=== PATIENT | male | born 1930 | race Caucasian/White ===

== ENCOUNTER 2017-01-23 04:44 | Inpatient (IN) | payer OTHER ==
[2017-01-23] VITALS (7 sets, daily range): BP systolic 133–170; BP diastolic 66–107
[~2017-01-23] VITALS: Ht 172.7 cm; Wt 89.8 kg
--- NOTE | ~2017-01-23 | EKG ---
[address] [address] ELECTROCARDIOGRAM REPORT Name: GRAYSON,AMANDAJyoti STARR Room #: 216-P ADM IN M.R.#: [id number] Admission: 01/23/17 Attend Phys: Gordon Leonard DO Discharge: Date of : 32 Report #: [id number] THIS REPORT FOR: //name// [facility] Test Date: 2017-01-25 Test Time: 07:37:43 Pat Name: AMANDA GRAYSON Department: Room: 216 P Gender: M Engine Lathe Set Up Operator Tool: Scarlet MENESES : 1930 Requested By: Gordon Leonard Order Number: [id number] MD: Moo Laws Measurements Intervals [place] Rate: 102 P: 223 TX: 192 QRS: -42 QRSD: 128 T: 134 QT: 379 QTc: 494 Interpretive Statements Sinus or ectopic atrial tachycardia Atrial premature complexes Consider left atrial enlargement Left bundle branch block Compared to ECG 01/23/2017 05:31:54 Sinus tachycardia no longer present Electronically Signed On 01-25-2017 8:35:13 CDT by Moo Laws [email or web address] <ELECTRONICALLY SIGNED> By: Moo Laws MD 01/25/17 0835 6 Moo Laws MD /EPI
--- NOTE | ~2017-01-23 | EKG ---
[place] [address] [facility] [place] [address] ELECTROCARDIOGRAM REPORT Name: GRAYSON,AMANDAJyoti STARR Room #: 216-P ADM IN M.R.#: [id number] Admission: 01/23/17 Attend Phys: Gordon Leonard DO Discharge: Date of : 32 Report #: [id number] THIS REPORT FOR: //name// [facility] Test Date: 2017-01-26 Test Time: 14:56:03 Pat Name: AMANDA GRAYSON Department: Room: 216 P Gender: M Plate Setter: Joanne LOCO : 1930 Requested By: Tomi Hayes Order Number: [id number] MD: Jorge Clark Measurements Intervals [place] Rate: 79 P: 16 UT: 219 QRS: -55 QRSD: 127 T: 138 QT: 411 QTc: 472 Interpretive Statements Sinus rhythm Atrial premature complexes Borderline prolonged [place] interval Left atrial enlargement Left bundle branch block Compared to ECG 01/25/2017 07:37:43 No significant change was found Electronically Signed On 01-27-2017 8:57:12 CDT by Jorge Clark [email or web address] <ELECTRONICALLY SIGNED> By: Jorge Clark MD, [facility] 01/27/17 0857 1456 1456 Jorge Clark MD, [facility] /EPI
--- NOTE | ~2017-01-23 | CATHLAB ---
[place] [address] [place] [address] INVASIVE PROCEDURE REPORT Name: AMANDA GRAYSON RO Room #: 216-P [facility] IN ..#: [id number] Admission: 01/23/17 Attend Phys: Gordon Leonard, Discharge: Date of : 32 Date of Service: 01/26/17 1736 Report #: [id number] THIS REPORT FOR: //name// APPROVED REPORT Patient Details Patient Status: In-Patient Room #: The patient is a 86 year-old male Event Personnel Tomi Hayes Fashion Design Professor, Aydee Barboza Monitor, Bess Lopes RN RN, Asad Dawkins Mahmood, Amber Monitor, Giuliana Frias RN airline pilot/first officer Performed Art Access - R femoral artery* Left Heart Cath w/or w/o Coronaries [id number] [facility] Indication Non-STEMI , Heart failure, Unstable angina , Cardiomyopathy Risk Factors Hypercholesterolemia, Hypertension Procedure Narrative The Right Groin^ was infiltrated with 1% Lidocaine subcutaneous anesthesia. A PINNACLE 4FR Sheath #[id number] sheath was inserted into the RFA^. Coronary angiography was performed using coronary diagnostic catheters. The right coronary system was accessed and visualized with a JR 4 catheter. The left coronary system was accessed and visualized with a JL 4 catheter. The left ventricle was accessed and visualized with a Pigtail catheter. Left ventricular/Aortic Valve gradient assessed via catheter pullback. Left ventriculogram was performed in 30 degree projection. The patient tolerated the procedure well and there were no complications associated with the procedure. Intraoperative Conscious Sedation Sedation start time: 13:20 Case end Time: 13:59 Versed 1.0 mg Fluoro Time: 9.05 minutes Dose: DAP 55167.00 cGycm2 1674 mGy Contrast Type and Amount: Omnipaque 169 ml [facility] [place] [address] INVASIVE PROCEDURE REPORT Name: GRAYSONAMANDA DARLING Room #: 216-P [facility] IN .R.#: [id number] Admission: 01/23/17 Attend Phys: Gordon Leonard, Discharge: Date of : 32 Date of Service: 01/26/17 1736 Report #: [id number] Coronary Angiography The patient's coronary anatomy is right dominant. Diagnostic Cath Left Main Mild diffuse disease LAD Moderately calcified in proximal and mid segments. The proximal LAD supplies 2 diagonal arteries, before a subtotal occlusion within the mid segment. After the obstruction, there is recannulation of the mid/distal LAD and third diagonal artery. Diagonal 1 Small-caliber vessel with no flow-limiting lesions Diagonal 2 Small-caliber vessel with no flow-limiting lesions Circumflex Small-caliber vessel, supplying a small obtuse marginal artery. Right Coronary Large, dominant vessel supplying a PDA and several RPL branches. The branches extend out into the mid lateral wall. The RCA proper is heavily calcified throughout. There is a moderate to severe stenosis in the proximal segment, 60-70%. R PDA A small caliber vessel with a severe stenosis in mid segment. RPLV The distal RCA has a severe 70% occlusion prior to supplying several RPL branches. Left Ventriculography The left ventricle is mildly dilated in size with diminished contractility. The left ventricular ejection fraction is estimated to be 30-35%. Left ventricular wall motion abnormalities are present. There is hypokinesis of the mid to apical anterior and distal inferoapical segments. Hemodynamics The aortic pressure is 133/65 mmHg with a mean of 90 mmHg. The left ventricular pressure is 147/20 mmHg with a mean of mmHg. The left ventricular end diastolic pressure is 30 mmHg. 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 Failed angioplasty of the mid LAD stenosis due to inability to cross the lesion with a wire. The stenosis is mostly likely a chronic total occlusion. Recommend medical therapy at this time and obtain a CV consultation. Recommendations [facility] [address] [place] [address] INVASIVE PROCEDURE REPORT Name: AMANDA GRAYSON RO Room #: 216-P [facility] IN M.R.#: [id number] Admission: 01/23/17 Attend Phys: Gordon Leonard, Discharge: Date of : 32 Date of Service: 01/26/17 1736 Report #: [id number] [facility] CABG <ELECTRONICALLY SIGNED> By: Tomi Hayes MD 01/26/17 1736 173 173 Tomi Hayes MD /INF
--- NOTE | ~2017-01-23 | 2DMMODE ---
[facility] [address] [place] [address] 2 D/M-MODE ECHOCARDIOGRAM Name: KENANAMANDA RO Room #: 216-P [facility] IN M.R.#: [id number] Admission: 01/23/17 Attend Phys: Gordon Leonard, Discharge: Date of : 32 Date of Service: 01/23/17 1314 Report #: [id number] THIS REPORT FOR: //name// APPROVED REPORT Study performed: 01/23/2017 10:57:02 EXAM: Comprehensive 2D, Doppler, and color-flow Echocardiogram Patient Location: Bedside Room #: 216 Status: routine Other Information Study Quality: Adequate Indications Diabetes Hypertension/HDD Elevated Troponin Echo Enhancing Agent Indication: Endocardial border delineation Agent(s) / Amount(s) Used: Optison 3 cc 2D Dimensions RVDd: 33.27 mm LVEF(%): 37.17 (>50%) IVSd: 9.90 (7-11mm) LVOT Diam: 22.58 (18-24mm) LVDd: 50.79 mm PWd: 10.10 (7-11mm) Ascending Ao: 35.14 (22-36mm) LVDs: 41.65 (25-40mm) Aortic Root: 28.44 mm IVC: 31.00 mm Rutherford's LVEF: 37.17 % Volumes Left Atrial Volume (Systole) Single Plane 4CH: 103.70 mL Single Plane 2CH: 80.48 mL LA ESV Index: 50.00 mL/m2 Aortic Valve AoV Peak Jose R.: 1.08 m/s AO Peak Gr.: 4.63 mmHg LVOT Max P.41 mmHg LVOT Max V: 0.92 m/s DEIRDRE Vmax: 3.43 cm2 [facility] [address] [place] [address] 2 D/M-MODE ECHOCARDIOGRAM Name: GRAYSONAMANDA CAPE GIRARDEAU Room #: 216[facility] IN ..#: [id number] Admission: 01/23/17 Attend Phys: Gordon Leonard, Discharge: Date of : 32 Date of Service: 01/23/17 1314 Report #: [id number] Mitral Valve E/A Ratio: 1.2 MV Decel. Time: 161.31 ms MV E Max Jose R.: 1.02 m/s MV A Jose R.: 0.84 m/s MV PHT: 46.78 ms IVRT: 83.04 ms Pulmonary Valve PV Peak Jose R.: 0.77 m/s PV Peak Gr.: 2.36 mmHg Tricuspid Valve TR Peak Jose R.: 3.53 m/s RAP Estimate: 15.00 mmHg TR Peak Gr.: 49.92 mmHg PA Pressure: 65.00 mmHg Left Ventricle The left ventricle is normal size. Distal septal, apical and anterolateral wall hypokinesis There is normal left ventricular wall thickness. Left ventricular ejection fraction is moderate-severely decreased. LVEF is 30-35%. This study is not technically sufficient to allow evaluation of the LV diastolic function. Right Ventricle The right ventricle is normal size. The right ventricular systolic function is normal. Atria Left atrium is dilated. The right atrium size is normal. Aortic Valve Aortic valve is calcified. Trace aortic regurgitation. There is no aortic valvular stenosis. Mitral Valve The mitral valve is normal in structure. Mild-moderate mitral regurgitation. No evidence of mitral valve stenosis. Tricuspid Valve The tricuspid valve is normal in structure. There is no tricuspid valve stenosis. There is trace to mild tricuspid regurgitation. The right atrial pressure is estimated at 15 mmHg. There is moderate-severe pulmonary hypertension. Pulmonic Valve The pulmonary valve is normal in structure. There is no pulmonic [place] [address] [place] [address] 2 D/M-MODE ECHOCARDIOGRAM Name: AMANDA GRAYSON RO Room #: 216-P [facility] IN [facility]#: [id number] Admission: 01/23/17 Attend Phys: Gordon Leonard, Discharge: Date of : 32 Date of Service: 01/23/17 1314 Report #: [id number] valvular regurgitation. Great Vessels The aortic root is normal in size. Dilated IVC with poor inspiration collapse is consistent with elevated right atrial pressure. Pericardium Tiny anterior pericardial effusion. <Conclusion> Technically limited study Left ventricular ejection fraction is moderate-severely decreased. Distal septal, apical and anterolateral wall hypokinesis LVEF 30-35%. Left atrium is dilated. Aortic valve is grossly normal. No aortic valvular stenosis or insufficiency. The mitral valve is normal in structure. Mild-moderate mitral regurgitation. Pulmonary artery pressure of 60mmHg Tiny anterior pericardial effusion. <ELECTRONICALLY SIGNED> By: Jorge Clark MD, FACC 01/23/17 1314 13 13 Jorge Clark MD, FACC /INF
--- NOTE | ~2017-01-23 | EKG ---
[place] [address] [facility] [place] [address] ELECTROCARDIOGRAM REPORT Name: AMANDA GRAYSON RO Room #: 216- ADM IN M.R.#: [id number] Admission: 01/23/17 Attend Phys: Gordon Leonard DO Discharge: Date of : 32 Report #: [id number] THIS REPORT FOR: //name// [facility] Test Date: 2017-01-27 Test Time: 07:29:12 Pat Name: AMANDA GRAYSON Department: Room: 216 P Gender: M Report Specialist: Scarlet MENESES : 1930 Requested By: Tomi Hayes Order Number: [id number] MD: Jorge Clark Measurements Intervals [place] Rate: 67 P: -25 LA: 254 QRS: -59 QRSD: 131 T: 209 QT: 552 QTc: 583 Interpretive Statements Sinus rhythm Prolonged [place] interval Left bundle branch block Compared to ECG 01/25/2017 07:37:43 First degree AV block now present Atrial premature complex(es) no longer present Electronically Signed On 01-27-2017 9:05:30 CDT by Jorge Clark [email or web address] <ELECTRONICALLY SIGNED> By: Jorge Clark MD, [facility] 01/27/17 0905 Jorge Clark MD, [facility] /EPI
--- NOTE | ~2017-01-23 | EKG ---
[place] [address] [facility] [place] [address] ELECTROCARDIOGRAM REPORT Name: GRAYSON,AMANDAJyoti STARR Room #: 216-P ADM IN M.R.#: [id number] Admission: 01/23/17 Attend Phys: Gordon Leonard DO Discharge: Date of : 32 Report #: [id number] THIS REPORT FOR: //name// [facility] ED Test Date: 2017-01-23 Test Time: 05:31:54 Pat Name: AMANDA GRAYSON Department: Room: 216 Gender: M Resource Coordinator: michael : 1930 Requested By: Abran Patel Order Number: [id number] MD: Jorge Clark Measurements Intervals [place] Rate: 101 P: -59 AR: 207 QRS: -41 QRSD: 139 T: 142 QT: 392 QTc: 509 Interpretive Statements Sinus tachycardia Atrial premature complex Borderline prolonged [place] interval Left bundle branch block No previous ECG available for comparison Electronically Signed On 01-23-2017 8:51:58 CDT by Jorge Clark [email or web address] <ELECTRONICALLY SIGNED> By: Jorge Clark MD, [facility] 01/23/17 0851 0 0 Jorge Clark MD, [facility] /EPI
--- NOTE | ~2017-01-23 | EKG ---
[address] [employer] [place] [address] ELECTROCARDIOGRAM REPORT Name: MELANI GRAYSONJyoti STARR Room #: 216- ADM IN M.R.#: [id number] Admission: 01/23/17 Attend Phys: Gordon Leonard DO Discharge: Date of : 32 Report #: [id number] THIS REPORT FOR: //name// [facility] Test Date: 2017-01-24 Test Time: 11:01:35 Pat Name: AMANDA GRAYSON Department: Room: 216 P Gender: M Softlines Supervisor: Scarlet MENESES : 1930 Requested By: Karla Sewell Order Number: [id number] MD: Jorge Clark Measurements Intervals [place] Rate: 74 P: -1 [place]: 41 QRS: -48 QRSD: 132 T: 179 QT: 454 QTc: 504 Interpretive Statements Sinus rhythm Atrial premature complexes Short [place] interval Probable left atrial enlargement Left bundle branch block Compared to ECG 01/23/2017 05:31:54 Atrial premature complexes are now present Electronically Signed On 01-25-2017 8:08:35 CDT by Jorge Clark [email or web address] <ELECTRONICALLY SIGNED> By: Jorge Clark MD, [facility] 01/25/17 0808 1101 1101 Jorge Clark MD, [facility] /EPI
[2017-01-23 05:23] LABS: HEMATOCRIT 38.2 % (42.0-52.0); HEMOGLOBIN 13.4 gm/dL (14.0-18.0); MCH 32.1 pg (26.0-34.0); MCHC 35.2 g/dL (28.0-37.0); MCV 91.4 fL (80.0-100.0); PLATELET COUNT 178 thou/uL (150-400); RBC 4.17 mil/uL (4.50-6.00); RDW 13.3 % (10.5-14.5); WBC 11.5 thou/uL (4.0-11.0)
[2017-01-23] MEDS ORDERED: PRINIVIL20 MG PO (05:25)
[2017-01-23] MEDS ORDERED: TOPROL XL25 MG PO (05:26)
[2017-01-23] MEDS ORDERED: GLYBURIDE 2.52.5 MG PO (05:26)
[2017-01-23 05:27] LABS: URINE BILIRUBIN NEGATIVE (Negative); URINE BLOOD 1+ (Negative); URINE COLOR YELLOW; URINE GLUCOSE-RANDOM* NEGATIVE (Negative); URINE KETONES TRACE (Negative); URINE LEUKOCYTES-REFLEX NEGATIVE (Negative); URINE PROTEIN (DIPSTICK) 2+ (Negative); URINE SPECIFIC GRAVITY >= 1.030 (1.003-1.035)
[2017-01-23] MEDS ORDERED: FLOMAX0.4 MG PO (05:27)
[2017-01-23] MEDS ORDERED: NOVOLOG100 UNIT/1 SUBQ (05:27)
[2017-01-23] MEDS ORDERED: LANTUS100 UNIT/M SUBQ (05:27)
[2017-01-23 05:37] LABS: MANUAL DIFF YES
[2017-01-23 05:42] LABS: CALCIUM 8.6 mg/dL (8.5-10.1); CREATININE 1.2 mg/dL (0.7-1.3); MAGNESIUM 1.5 mg/dL (1.8-2.4); POTASSIUM 4.1 mmol/L (3.5-5.1); TOTAL BILIRUBIN 2.1 mg/dL (<0.1-1.0); TOTAL PROTEIN 7.6 g/dL (6.4-8.2); TROPONIN-I 0.22 ng/mL (<0.04-0.07)
[2017-01-23 05:50] LABS: ABG SAMPLE TYPE ARTERIAL; BE(vivo) -7.3 mmol/L (-2 to +3); HCO3 16.7 mmol/L (22.0-26.0); LACTATE 1.13 mmol/L (0.5-2.0); O2(CT) 17.9 mL/dL (15.0-23.0); O2Hb 94.1 % (92.0-98.0); PCO2 29.8 mmHg (35.0-45.0); PO2 80.7 mmHg (80.0-100.0); pH 7.367 (7.360-7.450); sO2 95.8 % (92.0-98.0); tCO2 17.6 mmol/L (24.0-30.0)
[2017-01-23 05:51] LABS: Pressure Support 6 cm H20; STICK SITE R.BRACHIAL
[2017-01-23 06:02] LABS: APTT 28.1 Seconds (24.5-32.8); INR 1.1; PROTIME 11.2 Seconds (9.3-11.4)
[2017-01-23 06:10] LABS: ABSOLUTE NEUTROPHILS 9.8 thou/uL (1.4-8.2); CRYSTALS None Seen /LPF (None Seen); METAMYELOCYTES 1 %; SQUAMOUS 0-3 Few /LPF (0-3); TOTAL CELL COUNT 100; URINE RBC 0-2 Rare /HPF (0-2); URINE WBC-REFLEX None Seen /HPF (0-5)
[2017-01-23] MEDS ORDERED: LIPITOR 20 MG T20 M1 PO (12:17)
[2017-01-23] MEDS ORDERED: ASPIR 8181 MG (12:21)
[2017-01-23] MEDS ORDERED: IRON325 PO (12:22)
[2017-01-23] MEDS ORDERED: TYLENOL325 MG (12:22)
[2017-01-23] MEDS ORDERED: COLACE100 MG PO (12:24)
[2017-01-24 03:56] VITALS: BP 155/90
[2017-01-24 07:44] VITALS: BP 145/69
[2017-01-24 10:02] LABS: HEMATOCRIT 35.8 % (42.0-52.0); HEMOGLOBIN 12.4 gm/dL (14.0-18.0); MCH 32.4 pg (26.0-34.0); MCHC 34.7 g/dL (28.0-37.0); MCV 93.4 fL (80.0-100.0); RBC 3.84 mil/uL (4.50-6.00); RDW 13.3 % (10.5-14.5); WBC 13.7 thou/uL (4.0-11.0)
[2017-01-24 10:16] LABS: CALCIUM 7.9 mg/dL (8.5-10.1); POTASSIUM 4.6 mmol/L (3.5-5.1)
[2017-01-24 10:53] VITALS: BP 142/67
[2017-01-24 11:12] VITALS: BP 123/64
[2017-01-24 15:45] VITALS: BP 140/68
[2017-01-24 18:31] LABS: ALBUMIN 3.1 g/dL (3.4-5.0); CALCIUM 7.7 mg/dL (8.5-10.1); CREATININE 1.1 mg/dL (0.7-1.3); PHOSPHORUS 4.5 mg/dL (2.5-4.9); POTASSIUM 4.3 mmol/L (3.5-5.1)
[2017-01-24 19:35] VITALS: BP 148/82
[2017-01-25] VITALS (8 sets, daily range): BP systolic 11–158; BP diastolic 64–96
[2017-01-25 02:47] LABS: ABSOLUTE NEUTROPHILS 8.5 thou/uL (1.4-8.2); BASOPHILS 0.3 % (0.0-2.0); EOSINOPHILS 0.7 % (0.0-3.0); HEMATOCRIT 34.2 % (42.0-52.0); HEMOGLOBIN 12.1 gm/dL (14.0-18.0); LYMPHOCYTES 6.8 % (24.0-44.0); MCH 32.9 pg (26.0-34.0); MCHC 35.3 g/dL (28.0-37.0); MONOCYTES 7.3 % (1.0-8.0); PLATELET COUNT 142 thou/uL (150-400); POLYS 84.9 % (36.0-66.0); RBC 3.67 mil/uL (4.50-6.00); RDW 12.9 % (10.5-14.5); WBC 10.1 thou/uL (4.0-11.0)
[2017-01-25 02:49] LABS: MANUAL DIFF NO
[2017-01-25 02:59] LABS: CALCIUM 7.8 mg/dL (8.5-10.1); CREATININE 1.1 mg/dL (0.7-1.3); PHOSPHORUS 4.3 mg/dL (2.5-4.9); POTASSIUM 4.8 mmol/L (3.5-5.1)
[2017-01-26] VITALS (11 sets, daily range): BP systolic 126–168; BP diastolic 60–90
[2017-01-26 03:53] LABS: ABSOLUTE NEUTROPHILS 7.1 thou/uL (1.4-8.2); BASOPHILS 0.2 % (0.0-2.0); EOSINOPHILS 1.4 % (0.0-3.0); HEMATOCRIT 33.4 % (42.0-52.0); HEMOGLOBIN 11.7 gm/dL (14.0-18.0); LYMPHOCYTES 10.2 % (24.0-44.0); MCH 32.3 pg (26.0-34.0); MCHC 34.9 g/dL (28.0-37.0); MCV 92.5 fL (80.0-100.0); MONOCYTES 9.6 % (1.0-8.0); PLATELET COUNT 154 thou/uL (150-400); POLYS 78.6 % (36.0-66.0); RBC 3.62 mil/uL (4.50-6.00)
[2017-01-26 03:59] LABS: MANUAL DIFF NO
[2017-01-26 04:01] LABS: CALCIUM 7.8 mg/dL (8.5-10.1); CREATININE 1.1 mg/dL (0.7-1.3); PHOSPHORUS 4.4 mg/dL (2.5-4.9); POTASSIUM 4.3 mmol/L (3.5-5.1)
[2017-01-27] VITALS (10 sets, daily range): BP systolic 71–134; BP diastolic 43–66
[2017-01-27 06:48] LABS: HEMATOCRIT 37.4 % (42.0-52.0); MCHC 34.9 g/dL (28.0-37.0); MCV 91.7 fL (80.0-100.0); PLATELET COUNT 180 thou/uL (150-400); RBC 4.08 mil/uL (4.50-6.00); RDW 13.4 % (10.5-14.5); WBC 11.2 thou/uL (4.0-11.0)
[2017-01-27 06:49] LABS: MANUAL DIFF YES
[2017-01-27 07:03] LABS: ALBUMIN 3.6 g/dL (3.4-5.0); CALCIUM 8.4 mg/dL (8.5-10.1); CREATININE 1.6 mg/dL (0.7-1.3); PHOSPHORUS 4.8 mg/dL (2.5-4.9); POTASSIUM 4.3 mmol/L (3.5-5.1)
[2017-01-27 07:56] LABS: ABSOLUTE NEUTROPHILS 8.4 thou/uL (1.4-8.2); TOTAL CELL COUNT 100
[2017-01-27 07:57] LABS: ANISOCYTOSIS SLIGHT
[2017-01-28 04:00] VITALS: BP 140/73
[2017-01-28 05:15] LABS: ALBUMIN 3.1 g/dL (3.4-5.0); CREATININE 2.1 mg/dL (0.7-1.3); POTASSIUM 4.2 mmol/L (3.5-5.1)
[2017-01-28 07:06] VITALS: BP 136/61
[2017-01-28 13:00] VITALS: BP 85/40
[2017-01-28 14:38] VITALS: BP 98/33
[2017-01-28 15:34] VITALS: BP 96/50
[2017-01-28 20:23] VITALS: BP 120/55
[2017-01-29 04:03] VITALS: BP 161/80
[2017-01-29 04:42] LABS: ALBUMIN 3.1 g/dL (3.4-5.0); CALCIUM 8.2 mg/dL (8.5-10.1); CREATININE 2.1 mg/dL (0.7-1.3); PHOSPHORUS 5.2 mg/dL (2.5-4.9); POTASSIUM 4.4 mmol/L (3.5-5.1)
[2017-01-29 08:00] VITALS: BP 142/55
[2017-01-29 08:58] LABS: ABSOLUTE NEUTROPHILS 5.9 thou/uL (1.4-8.2); BASOPHILS 0.9 % (0.0-2.0); EOSINOPHILS 2.9 % (0.0-3.0); HEMATOCRIT 34.2 % (42.0-52.0); HEMOGLOBIN 11.9 gm/dL (14.0-18.0); LYMPHOCYTES 18.3 % (24.0-44.0); MCH 32.4 pg (26.0-34.0); MCHC 34.9 g/dL (28.0-37.0); MCV 92.7 fL (80.0-100.0); MONOCYTES 11.7 % (1.0-8.0); PLATELET COUNT 157 thou/uL (150-400); POLYS 66.2 % (36.0-66.0); RBC 3.69 mil/uL (4.50-6.00); RDW 13.2 % (10.5-14.5); WBC 8.9 thou/uL (4.0-11.0)
[2017-01-29 08:59] LABS: MANUAL DIFF NO
[2017-01-29 13:10] VITALS: BP 96/51
[2017-01-29 16:45] VITALS: BP 110/44
[2017-01-29 20:23] VITALS: BP 93/51
[2017-01-30 03:38] LABS: ALBUMIN 3.1 g/dL (3.4-5.0); CALCIUM 8.1 mg/dL (8.5-10.1); CREATININE 1.6 mg/dL (0.7-1.3); PHOSPHORUS 4.8 mg/dL (2.5-4.9); POTASSIUM 4.4 mmol/L (3.5-5.1)
[2017-01-30 04:46] VITALS: BP 127/40
[2017-01-30 07:35] VITALS: BP 134/16
[2017-01-30 11:40] VITALS: BP 120/44
[2017-01-30 17:44] VITALS: BP 131/57
[2017-01-30 20:42] VITALS: BP 155/70
[2017-01-31 03:54] LABS: ABSOLUTE NEUTROPHILS 5.5 thou/uL (1.4-8.2); BASOPHILS 0.7 % (0.0-2.0); EOSINOPHILS 2.9 % (0.0-3.0); HEMATOCRIT 32.8 % (42.0-52.0); HEMOGLOBIN 11.7 gm/dL (14.0-18.0); LYMPHOCYTES 15.1 % (24.0-44.0); MCH 32.9 pg (26.0-34.0); MCHC 35.7 g/dL (28.0-37.0); MCV 92.4 fL (80.0-100.0); MONOCYTES 11.4 % (1.0-8.0); PLATELET COUNT 143 thou/uL (150-400); POLYS 69.9 % (36.0-66.0); RBC 3.55 mil/uL (4.50-6.00); RDW 13.3 % (10.5-14.5); WBC 7.9 thou/uL (4.0-11.0)
[2017-01-31 03:55] LABS: ALBUMIN 3.1 g/dL (3.4-5.0); CALCIUM 8.4 mg/dL (8.5-10.1); CREATININE 1.2 mg/dL (0.7-1.3); MAGNESIUM 1.5 mg/dL (1.8-2.4); PHOSPHORUS 3.7 mg/dL (2.5-4.9); POTASSIUM 4.3 mmol/L (3.5-5.1)
[2017-01-31 04:22] VITALS: BP 180/70
[2017-01-31 04:26] LABS: MANUAL DIFF NO
[2017-01-31 07:35] VITALS: BP 145/74
[2017-01-31 11:05] VITALS: BP 99/52
[2017-01-31 15:20] VITALS: BP 137/59
[2017-01-31 19:24] VITALS: BP 155/67
[2017-02-01 03:09] LABS: ALBUMIN 3.2 g/dL (3.4-5.0); CALCIUM 8.3 mg/dL (8.5-10.1); CREATININE 1.1 mg/dL (0.7-1.3); PHOSPHORUS 3.5 mg/dL (2.5-4.9); POTASSIUM 4.2 mmol/L (3.5-5.1)
[2017-02-01 03:30] VITALS: BP 158/91
[2017-02-01 07:40] VITALS: BP 144/71
[2017-02-01] MEDS ORDERED: LANTUS100 UNIT/M SUBQ (09:44)
[2017-02-01] MEDS ORDERED: TRADJENTA5 MG PO (09:44)
[2017-02-01 11:35] VITALS: BP 123/56
== END 2017-02-01 14:20 | DRG 871 ==
LOC: ER 04:44 → 2N 05:44 → EROBS 05:44 → 2N 07:15
PROVIDERS: Emergency Medicine; Family Medicine; Hospitalist; Internal Medicine Endocrinology, Diabetes & Metabolism; Nurse Practitioner
DX: A41.9 Sepsis, unspecified organism (principal); I21.4 Non-ST elevation (NSTEMI) myocardial infarction; J96.01 Acute respiratory failure with hypoxia; I50.33 Acute on chronic diastolic (congestive) heart failure; N17.0 Acute kidney failure with tubular necrosis; N39.0 Urinary tract infection, site not specified; I42.9 Cardiomyopathy, unspecified; E22.2 Syndrome of inappropriate secretion of antidiuretic hormone; R33.9 Retention of urine, unspecified; E78.5 Hyperlipidemia, unspecified; I11.0 Hypertensive heart disease with heart failure; J32.9 Chronic sinusitis, unspecified; I44.7 Left bundle-branch block, unspecified; I25.10 Atherosclerotic heart disease of native coronary artery without angina pectoris; I34.0 Nonrheumatic mitral (valve) insufficiency; I27.2 Other secondary pulmonary hypertension; H54.41 Blindness, right eye, normal vision left eye; K21.9 Gastro-esophageal reflux disease without esophagitis; M19.90 Unspecified osteoarthritis, unspecified site; Z98.42 Cataract extraction status, left eye; Z98.41 Cataract extraction status, right eye; E11.649 Type 2 diabetes mellitus with hypoglycemia without coma; Z89.511 Acquired absence of right leg below knee; Z87.81 Personal history of (healed) traumatic fracture; Z91.81 History of falling; Z79.4 Long term (current) use of insulin; Z79.82 Long term (current) use of aspirin; Z79.899 Other long term (current) drug therapy; Z88.2 Allergy status to sulfonamides; Z83.3 Family history of diabetes mellitus; Z82.49 Family history of ischemic heart disease and other diseases of the circulatory system
CPT/HCPCS: 10081

== ENCOUNTER 2017-03-23 12:43 | Inpatient (IN) | payer OTHER ==
[~2017-03-23] VITALS: Ht 177.8 cm; Wt 89.5 kg
--- NOTE | ~2017-03-23 | S ---
[facility] [place] [address] SURGICAL PATH RPT PROCEDURE Name: AMANDA GARCIA Room #: 218-P ADM IN M.R.#: [id number] Admission: 03/23/17 Date of : 34 Discharge: Report #: [id number] Path Case #: [id number] PATHOLOGY REPORT COLLECTION DATE: 03/28/2017 RECEIVED DATE: 03/28/2017 SUBMITTING PHYS: Dr. Maikol Sterling OTHER PHYS: Dr. Jonny Chery SPECIMEN(S) RECEIVED: A.Peripheral smear * * * * * * * * * * * * FINAL DIAGNOSIS: Peripheral blood smear: - Mild normocytic anemia, mildly left shifted granulocytes, severe thrombocytopenia and circulating nucleated red blood cells. (see comment) COMMENT: Overall, the peripheral blood has mild normocytic anemia, mildly left shifted granulocytes and severe thrombocytopenia. Occasional circulating nucleated red blood cells are also noted. The WBC count is within the normal reference range. The etiology of the findings is unclear based entirely on slide review. Potential causes of thrombocytopenia include immune and non-immune platelet destruction, drug and/or toxic exposures, consumption, dilutional, and primary bone marrow disorders. The mildly left shifted granulocytes are likely a reactive condition. No blasts or Soumya rods are seen on scanning. Potential causes of normocytic anemia include anemia of chronic disease, treated and/or vitamin and mineral deficiencies, acute blood loss, and dilutional. Correlation with clinical history and additional laboratory data is recommended. The case is discussed with Dr. Kaley Leal on 03/28/17 at approximately 11:00 AM. (CLW:; 03/28/2017) PATHOLOGIST: Thuy Lambert M.D. REPORT ELECTRONICALLY SIGNED BY: Thuy Lambert M.D. DATE/TIME: 03/28/2017 23:07 * * * * * * * * * * * * MICROSCOPIC DESCRIPTION: CBC Data (03/28/17): WBC 9,600 /uL, RBC 3.30, hemoglobin 11.1 g/dL, hematocrit 31.3%, MCV 94.9 fL, MCH 33.7 pg, MCHC 35.6 g/dL, RDW 16.4%. Platelet count 17,000 /uL. Manual white blood cell [address] [address] SURGICAL PATH RPT PROCEDURE Name: AMANDA GARCIA [place] Room #: 218-P ADM IN [facility]#: [id number] Admission: 03/23/17 Date of : 32 Discharge: Report #: [id number] Path Case #: [id number] differential: segs 67%, bands 16%, lymphs 6%, monos 2%, metas 6%, myelos 2%, atypical lymph 1% and 3 NRBCs/100 WBCs. Peripheral Blood Smear: Cytomorphological examination of the Marroquin's stained peripheral blood smear confirms the provided data. Red blood cells show mild normocytic anemia with mild anisocytosis. No significant poikilocytosis is identified. No significant schistocytes or microspherocytes are present. White blood cells are predominantly segmented neutrophils. Occasional neutrophils have hypersegmented nuclei and hypogranular cytoplasm; however, marked dyspoietic changes are not identified. There is a mild left shift with occasional myelocytes and metamyelocytes noted on scanning. No blasts or Soumya rods are seen. Lymphocytes are predominantly small, round, and mature appearing with condensed chromatin and scant cytoplasm with admixed large granular lymphocytes and rare plasmacytoid lymphocytes. Rare monocytes are mature. Platelets are markedly decreased in number and mainly normal in morphology with rare larger platelets noted. Scattered nucleated red blood cells are seen. GROSS PATHOLOGY: Received are three Marroquin's stained peripheral blood smears, labeled "Amanda Garcia." (CLW:; 03/28/2017) CLINICAL HISTORY: 87 year-old man with mild anemia and severe thrombocytopenia. Morphologic review of the peripheral blood smear is requested by the patient's physician. INITIAL CPT CODE(S): A; [place] Professional services performed by [facility] at [place] [address] [address], [place] [address] Technical services performed by [employer] at [address] [place] [address], [address], [place] [address]. [facility] [address] [place] [address] PHONE: [phone] DIRECTOR: Juanjo Robins M.D. * * * END OF REPORT * * *
--- NOTE | ~2017-03-23 | EKG ---
[place] [address] [facility] [place] [address] ELECTROCARDIOGRAM REPORT Name: AMANDA GRAYSON RO Room #: 218-P ADM IN M.R.#: [id number] Admission: 03/23/17 Attend Phys: Maikol tSerling MD Discharge: Date of : 32 Report #: [id number] THIS REPORT FOR: //name// [facility] ED Test Date: 2017-03-23 Test Time: 12:55:14 Pat Name: AMANDA GRAYSON Department: Room: 218 Gender: M Professional Driver: Tate CARTY : 1930 Requested By: Brianne Deshpande Order Number: [id number] MD: Jorge Clark Measurements Intervals [place] Rate: 96 P: 26 NM: 177 QRS: -47 QRSD: 128 T: 139 QT: 397 QTc: 502 Interpretive Statements Sinus rhythm Left bundle branch block Compared to ECG 01/27/2017 07:29:12 First degree AV block no longer present ST and T wave abnormality is less pronounced QT interval shortened Electronically Signed On 03-24-2017 8:09:00 CDT by Jorge Clark [email or web address] <ELECTRONICALLY SIGNED> By: Jorge Clrak MD, [facility] 03/24/17 0809 1255 1255 Jorge Clark MD, [facility] /EPI
--- NOTE | ~2017-03-23 | EKG ---
[address] [place] [address] ELECTROCARDIOGRAM REPORT Name: GRAYSON,AMANDAJyoti STARR Room #: 218-[facility] IN ..#: [id number] Admission: 03/23/17 Attend Phys: Maikol Sterling MD Discharge: 04/02/17 Date of : 32 Report #: [id number] THIS REPORT FOR: //name// [facility] Test Date: 2017-04-02 Test Time: 13:46:36 Pat Name: AMANDA GRAYSON Department: Room: 218 Gender: M [place]: ANASTASIA : 1930 Requested By: Anders Sanchez Order Number: [id number] MD: Jorge Clark Measurements Intervals [place] Rate: 94 P: NE: QRS: -51 QRSD: 108 T: 161 QT: 363 QTc: 454 Interpretive Statements Atrial fibrillation Ventricular premature complex Left anterior fascicular block Abnormal R-wave progression, late transition Nonspecific ST and T wave abnormality Compared to ECG 03/23/2017 12:55:14 atrial fibrillation has replaced sinus rhythm Premature ventricular complexes are now present Electronically Signed On 04-03-2017 8:37:48 CDT by Jorge Clark [email or web address] <ELECTRONICALLY SIGNED> By: Jorge Clark MD, [facility] 04/03/17 0837 1346 1346 Jorge Clark MD, [facility] /EPI
[~2017-03-23 12:43] MED LIST: ASPIR 8181 MG; COLACE100 MG PO; FLOMAX0.4 MG PO; GLYBURIDE 2.52.5 MG PO; IRON325 PO; LANTUS100 UNIT/M SUBQ; LIPITOR 20 MG T20 M1 PO; NOVOLOG100 UNIT/1 SUBQ; PRINIVIL20 MG PO; TOPROL XL25 MG PO; TRADJENTA5 MG PO; TYLENOL325 MG
[2017-03-23 12:44] VITALS: BP 136/72
[2017-03-23 13:49] LABS: HEMOGLOBIN 12.9 gm/dL (14.0-18.0)
[2017-03-23 13:51] LABS: HEMATOCRIT 37.9 % (42.0-52.0); MCH 32.8 pg (26.0-34.0); MCHC 34.1 g/dL (28.0-37.0); MCV 96.1 fL (80.0-100.0); RBC 3.95 mil/uL (4.50-6.00); RDW 16.5 % (10.5-14.5); WBC 13.3 thou/uL (4.0-11.0)
[2017-03-23 13:52] LABS: MANUAL DIFF YES
[2017-03-23 13:53] LABS: CALCIUM 8.5 mg/dL (8.5-10.1); CREATININE 2.1 mg/dL (0.7-1.3)
[2017-03-23 14:00] LABS: INR 1.1; PROTIME 10.8 Seconds (9.3-11.4)
[2017-03-23 14:01] LABS: ALBUMIN 2.6 g/dL (3.4-5.0); MAGNESIUM 2.2 mg/dL (1.8-2.4); TOTAL PROTEIN 6.3 g/dL (6.4-8.2)
[2017-03-23 14:05] LABS: POTASSIUM 2.8 mmol/L (3.5-5.1); TROPONIN-I 0.91 ng/mL (<0.04-0.07)
[2017-03-23 14:10] LABS: ABSOLUTE NEUTROPHILS 11.3 thou/uL (1.4-8.2); ANISOCYTOSIS 1+; METAMYELOCYTES 2 %; PLATELET COUNT 41 thou/uL (150-400); PLATELET ESTIMATE DECREASED; TOTAL CELL COUNT 100
[2017-03-23 14:28] LABS: URINE BILIRUBIN NEGATIVE (Negative); URINE BLOOD 3+ (Negative); URINE COLOR YELLOW; URINE GLUCOSE-RANDOM* NEGATIVE (Negative); URINE KETONES NEGATIVE (Negative); URINE NITRITE NEGATIVE (Negative); URINE PROTEIN (DIPSTICK) 1+ (Negative); URINE SPECIFIC GRAVITY 1.015 (1.003-1.035); URINE UROBILINOGEN 0.2 E.U./dl (0.2-1.0)
[2017-03-23 14:42] LABS: AMORPHOUS URATES Moderate /LPF (None Seen); CASTS None Seen /LPF (None Seen); SQUAMOUS 4-10 Moderate /LPF (0-3); URINE RBC 3-10 Few /HPF (0-2); URINE WBC >25 Many /HPF (0-5)
[2017-03-23 16:00] VITALS: BP 108/50
[2017-03-23] MEDS ORDERED: LASIX 40 MG TAB40 M2 PO (16:28)
[2017-03-23] MEDS ORDERED: FINASTERIDE5 MG PO (16:28)
[2017-03-23] MEDS ORDERED: COZAAR 25 MG TA25 M1 PO (16:28)
[2017-03-23] MEDS ORDERED: POTASSIUM20 PO (16:28)
[2017-03-23] MEDS ORDERED: GLUCOTROL5 MG PO (16:29)
[2017-03-23 19:38] VITALS: BP 117/59
[2017-03-23] MEDS ORDERED: AMBIEN 5 MG TABL5 M1 PO (19:39)
[2017-03-24 02:32] LABS: HEMOGLOBIN 12.5 gm/dL (14.0-18.0)
[2017-03-24 02:34] LABS: HEMATOCRIT 37.7 % (42.0-52.0); MCH 32.2 pg (26.0-34.0); MCHC 33.1 g/dL (28.0-37.0); MCV 97.4 fL (80.0-100.0); PLATELET COUNT 40 thou/uL (150-400); RBC 3.87 mil/uL (4.50-6.00); RDW 16.6 % (10.5-14.5); WBC 13.8 thou/uL (4.0-11.0)
[2017-03-24 02:38] LABS: CALCIUM 8.2 mg/dL (8.5-10.1); CREATININE 1.9 mg/dL (0.7-1.3); MAGNESIUM 2.1 mg/dL (1.8-2.4); POTASSIUM 4.3 mmol/L (3.5-5.1)
[2017-03-24 03:46] LABS: MANUAL DIFF YES
[2017-03-24 04:02] VITALS: BP 128/63
[2017-03-24 07:40] VITALS: BP 125/67
[2017-03-24 08:45] LABS: ANISOCYTOSIS 1+; METAMYELOCYTES 1 %; MYELOCYTES 1 %; NUCLEATED RBCS 3 /100WBC; PLATELET ESTIMATE DECREASED; POLYCHROMASIA SLIGHT; TOTAL CELL COUNT 100
[2017-03-24 11:45] VITALS: BP 140/88
[2017-03-24 15:40] VITALS: BP 134/78
[2017-03-24 19:44] VITALS: BP 147/82
[2017-03-25 03:29] LABS: HEMATOCRIT 38.6 % (42.0-52.0); HEMOGLOBIN 12.6 gm/dL (14.0-18.0); MCHC 32.7 g/dL (28.0-37.0); MCV 97.8 fL (80.0-100.0); RBC 3.94 mil/uL (4.50-6.00); RDW 17.1 % (10.5-14.5); WBC 15.1 thou/uL (4.0-11.0)
[2017-03-25 03:38] LABS: CALCIUM 8.4 mg/dL (8.5-10.1); CREATININE 2.2 mg/dL (0.7-1.3); POTASSIUM 4.8 mmol/L (3.5-5.1)
[2017-03-25 05:24] VITALS: BP 139/76
[2017-03-25 07:35] VITALS: BP 131/71
[2017-03-25 11:50] VITALS: BP 118/67
[2017-03-25 15:25] VITALS: BP 127/71
[2017-03-25 19:39] VITALS: BP 130/79
[2017-03-26 03:02] LABS: HEMATOCRIT 34.5 % (42.0-52.0); HEMOGLOBIN 11.5 gm/dL (14.0-18.0); MCH 32.3 pg (26.0-34.0); MCHC 33.4 g/dL (28.0-37.0); MCV 96.7 fL (80.0-100.0); RBC 3.57 mil/uL (4.50-6.00); RDW 16.5 % (10.5-14.5); WBC 11.7 thou/uL (4.0-11.0)
[2017-03-26 03:05] LABS: CALCIUM 8.1 mg/dL (8.5-10.1); CREATININE 2.3 mg/dL (0.7-1.3)
[2017-03-26 03:07] LABS: POTASSIUM 3.4 mmol/L (3.5-5.1)
[2017-03-26 04:37] VITALS: BP 134/79
[2017-03-26 07:35] VITALS: BP 139/80
[2017-03-26 11:35] VITALS: BP 141/78
[2017-03-26 16:30] VITALS: BP 127/72
[2017-03-26 19:39] VITALS: BP 127/65
[2017-03-27 04:35] VITALS: BP 114/87
[2017-03-27 07:27] VITALS: BP 132/82
[2017-03-27 09:25] LABS: CALCIUM 8.2 mg/dL (8.5-10.1); POTASSIUM 3.2 mmol/L (3.5-5.1)
[2017-03-27 11:57] LABS: HEMATOCRIT 33.8 % (42.0-52.0)
[2017-03-27 11:59] LABS: HEMOGLOBIN 11.4 gm/dL (14.0-18.0); MCH 32.1 pg (26.0-34.0); MCHC 33.6 g/dL (28.0-37.0); MCV 95.7 fL (80.0-100.0); RBC 3.53 mil/uL (4.50-6.00); RDW 16.6 % (10.5-14.5); WBC 11.4 thou/uL (4.0-11.0)
[2017-03-27 12:05] LABS: MANUAL DIFF YES
[2017-03-27 12:14] VITALS: BP 124/69
[2017-03-27 12:36] LABS: ABSOLUTE NEUTROPHILS 9.2 thou/uL (1.4-8.2); METAMYELOCYTES 3 %; MYELOCYTES 1 %; NUCLEATED RBCS 4 /100WBC; PLATELET COUNT 21 thou/uL (150-400); PLATELET ESTIMATE MARKEDLY DECREASED; TOTAL CELL COUNT 100
[2017-03-27 15:00] VITALS: BP 119/62
[2017-03-27 21:02] VITALS: BP 140/77
[2017-03-28] VITALS: BP 142/60
[2017-03-28 04:00] VITALS: BP 142/65
[2017-03-28 04:08] LABS: HEMOGLOBIN 11.1 gm/dL (14.0-18.0); MCV 94.9 fL (80.0-100.0); RDW 16.4 % (10.5-14.5)
[2017-03-28 04:13] LABS: HEMATOCRIT 31.3 % (42.0-52.0); MCH 33.7 pg (26.0-34.0); MCHC 35.6 g/dL (28.0-37.0); WBC 9.6 thou/uL (4.0-11.0)
[2017-03-28 04:21] LABS: MANUAL DIFF YES
[2017-03-28 04:23] LABS: PLATELET COUNT 17 thou/uL (150-400)
[2017-03-28 04:27] LABS: CALCIUM 8.1 mg/dL (8.5-10.1)
[2017-03-28 04:29] LABS: % SATURATION 105 % (20-39); IRON 180 ug/dL (65-175); TIBC 172 ug/dL (250-450); UIBC -8 ug/dL
[2017-03-28 04:33] LABS: POTASSIUM 2.8 mmol/L (3.5-5.1)
[2017-03-28 05:07] LABS: FOLIC ACID 10.4 ng/mL (8.6-58.9); TSH 0.605 uIU/mL (0.358-3.740)
[2017-03-28 05:50] LABS: ANISOCYTOSIS 2+; ATYPICAL LYMPHS 1 %; METAMYELOCYTES 6 %; MYELOCYTES 2 %; NUCLEATED RBCS 3 /100WBC; PLATELET ESTIMATE MARKEDLY DECREASED; TOTAL CELL COUNT 100
[2017-03-28 05:51] LABS: POLYCHROMASIA OCCASIONAL
[2017-03-28 07:05] VITALS: BP 129/76
[2017-03-28 11:11] LABS: OBSERVED RETIC COUNT 1.77 % (0.6-2.6)
[2017-03-28 11:19] LABS: CREATININE 2.1 mg/dL (0.7-1.3); POTASSIUM 3.3 mmol/L (3.5-5.1)
[2017-03-28 11:24] LABS: APTT 22.4 Seconds (24.5-32.8); FIBRINOGEN 280.6 mg/dL (210-360)
[2017-03-28 11:55] VITALS: BP 101/53
[2017-03-28 16:30] VITALS: BP 119/63
[2017-03-28 18:36] LABS: URINE BILIRUBIN 1+ (Negative); URINE BLOOD 3+ (Negative); URINE COLOR RED; URINE GLUCOSE-RANDOM* NEGATIVE (Negative); URINE KETONES NEGATIVE (Negative); URINE NITRITE NEGATIVE (Negative); URINE PROTEIN (DIPSTICK) 2+ (Negative); URINE UROBILINOGEN 0.2 E.U./dl (0.2-1.0)
[2017-03-28 18:44] LABS: ICTOTEST (BILI CONFIRMATORY) Negative (Negative)
[2017-03-28 18:47] LABS: CRYSTALS None Seen /LPF (None Seen); SQUAMOUS None Seen /LPF (0-3)
[2017-03-28 18:48] LABS: BACTERIA 1-9 Few /HPF (None Seen); URINE RBC >20 Many /HPF (0-2); URINE WBC >25 Many /HPF (0-5)
[2017-03-28 18:49] LABS: HYALINE CASTS 0-3 Few /LPF (None Seen)
[2017-03-28 20:30] VITALS: BP 146/78; BP 146/90
[2017-03-29] VITALS (7 sets, daily range): BP systolic 99–163; BP diastolic 59–82
[2017-03-29 06:03] LABS: HEMATOCRIT 30.3 % (42.0-52.0); HEMOGLOBIN 10.6 gm/dL (14.0-18.0); MCH 33.4 pg (26.0-34.0)
[2017-03-29 06:08] LABS: MCHC 35.1 g/dL (28.0-37.0); MCV 95.2 fL (80.0-100.0); RBC 3.18 mil/uL (4.50-6.00); RDW 16.1 % (10.5-14.5)
[2017-03-29 06:20] LABS: ALBUMIN 2.2 g/dL (3.4-5.0); CALCIUM 7.9 mg/dL (8.5-10.1); PHOSPHORUS 4.4 mg/dL (2.5-4.9); POTASSIUM 3.2 mmol/L (3.5-5.1)
[2017-03-29 13:32] LABS: PLATELET ANTIBODY NEGATIVE
[2017-03-30 00:10] VITALS: BP 128/68
[2017-03-30 03:52] LABS: HEMOGLOBIN 9.9 gm/dL (14.0-18.0); MCH 33.8 pg (26.0-34.0); MCHC 35.3 g/dL (28.0-37.0); MCV 95.9 fL (80.0-100.0); RBC 2.92 mil/uL (4.50-6.00); RDW 16.4 % (10.5-14.5); WBC 8.4 thou/uL (4.0-11.0)
[2017-03-30 04:01] LABS: CREATININE 2.4 mg/dL (0.7-1.3); POTASSIUM 3.8 mmol/L (3.5-5.1)
[2017-03-30 04:30] VITALS: BP 100/61
[2017-03-30 08:00] VITALS: BP 146/78
[2017-03-30 12:00] VITALS: BP 134/61
[2017-03-30 20:22] VITALS: BP 136/51
[2017-03-31 01:10] LABS: HEPATITIS C VIRUS AB <0.1 (0.0-0.9)
[2017-03-31 04:18] LABS: HEMOGLOBIN 9.6 gm/dL (14.0-18.0); MCHC 34.7 g/dL (28.0-37.0)
[2017-03-31 04:20] LABS: HEMATOCRIT 27.6 % (42.0-52.0); MCV 95.1 fL (80.0-100.0); RBC 2.9 mil/uL (4.50-6.00); RDW 16.4 % (10.5-14.5); WBC 6.8 thou/uL (4.0-11.0)
[2017-03-31 04:25] LABS: CREATININE 2.7 mg/dL (0.7-1.3); POTASSIUM 3.6 mmol/L (3.5-5.1)
[2017-03-31 04:34] VITALS: BP 131/53
[2017-03-31 13:26] VITALS: BP 119/69
[2017-03-31 19:41] VITALS: BP 113/59
[2017-04-01] VITALS (8 sets, daily range): BP systolic 90–136; BP diastolic 40–56
[2017-04-01 04:31] LABS: CALCIUM 7.8 mg/dL (8.5-10.1); CREATININE 2.6 mg/dL (0.7-1.3); RDW 16.1 % (10.5-14.5); WBC 5.3 thou/uL (4.0-11.0)
[2017-04-01 04:32] LABS: HEMATOCRIT 26.1 % (42.0-52.0); HEMOGLOBIN 8.9 gm/dL (14.0-18.0); MCH 32.6 pg (26.0-34.0); MCHC 34.2 g/dL (28.0-37.0); MCV 95.2 fL (80.0-100.0); RBC 2.75 mil/uL (4.50-6.00)
[2017-04-01 04:43] LABS: POTASSIUM 2.9 mmol/L (3.5-5.1)
[2017-04-02 03:56] VITALS: BP 122/92
[2017-04-02 05:29] LABS: RDW 16.3 % (10.5-14.5); WBC 4.9 thou/uL (4.0-11.0)
[2017-04-02 05:31] LABS: HEMATOCRIT 27.1 % (42.0-52.0); HEMOGLOBIN 9.5 gm/dL (14.0-18.0); MCH 33.6 pg (26.0-34.0); MCV 96.1 fL (80.0-100.0); RBC 2.82 mil/uL (4.50-6.00)
[2017-04-02 05:40] LABS: CALCIUM 7.9 mg/dL (8.5-10.1); CREATININE 3.2 mg/dL (0.7-1.3); POTASSIUM 4.2 mmol/L (3.5-5.1)
[2017-04-02 08:00] VITALS: BP 89/65
[2017-04-02 12:00] VITALS: BP 88/52
[2017-04-02 13:55] LABS: HEMATOCRIT 24.8 % (42.0-52.0); HEMOGLOBIN 8.3 gm/dL (14.0-18.0); MCHC 33.6 g/dL (28.0-37.0); MCV 98.3 fL (80.0-100.0); RBC 2.52 mil/uL (4.50-6.00); RDW 16.7 % (10.5-14.5); WBC 3.9 thou/uL (4.0-11.0)
[2017-04-02 14:03] LABS: CALCIUM 7.6 mg/dL (8.5-10.1); CREATININE 3.5 mg/dL (0.7-1.3); POTASSIUM 4.2 mmol/L (3.5-5.1)
[2017-04-02 14:14] LABS: TROPONIN-I 4.21 ng/mL (<0.04-0.07)
== END 2017-04-02 17:50 | DRG 871 ==
LOC: ER 12:43 → EROBS 14:39 → 2N 14:39
PROVIDERS: Hospitalist; Internal Medicine; Internal Medicine Cardiovascular Disease; Internal Medicine Hematology & Oncology; Nurse Practitioner; Physician Assistant
PROC: 30233R1 Transfusion of Nonautologous Platelets into Peripheral Vein, Percutaneous Approach (ICD-10-PCS; principal; 2017-04-01)
DX: A41.9 Sepsis, unspecified organism (principal); I21.4 Non-ST elevation (NSTEMI) myocardial infarction; I50.23 Acute on chronic systolic (congestive) heart failure; N17.0 Acute kidney failure with tubular necrosis; J96.90 Respiratory failure, unspecified, unspecified whether with hypoxia or hypercapnia; I42.9 Cardiomyopathy, unspecified; E46 Unspecified protein-calorie malnutrition; I13.0 Hypertensive heart and chronic kidney disease with heart failure and stage 1 through stage 4 chronic kidney disease, or unspecified chronic kidney disease; Z66 Do not resuscitate; K21.9 Gastro-esophageal reflux disease without esophagitis; E78.00 Pure hypercholesterolemia, unspecified; E87.6 Hypokalemia; E86.0 Dehydration; E78.5 Hyperlipidemia, unspecified; I25.10 Atherosclerotic heart disease of native coronary artery without angina pectoris; R33.9 Retention of urine, unspecified; H54.41 Blindness, right eye, normal vision left eye; E11.51 Type 2 diabetes mellitus with diabetic peripheral angiopathy without gangrene; N18.9 Chronic kidney disease, unspecified; E11.22 Type 2 diabetes mellitus with diabetic chronic kidney disease; D69.6 Thrombocytopenia, unspecified; N30.91 Cystitis, unspecified with hematuria; D64.9 Anemia, unspecified; Z89.511 Acquired absence of right leg below knee; Z79.4 Long term (current) use of insulin; Z79.899 Other long term (current) drug therapy; Z88.2 Allergy status to sulfonamides; Z82.49 Family history of ischemic heart disease and other diseases of the circulatory system; Z83.3 Family history of diabetes mellitus; Z98.42 Cataract extraction status, left eye; Z98.41 Cataract extraction status, right eye; Z90.49 Acquired absence of other specified parts of digestive tract; Z90.01 Acquired absence of eye; Z68.28 Body mass index [BMI] 28.0-28.9, adult; Z51.5 Encounter for palliative care
CPT/HCPCS: 10081; 10194